=== PATIENT | female | born 1980 | race Two or more races ===

== ENCOUNTER 2016-11-28 12:23 | Emergency (ER) | payer MEDICAID, OTHER ==
[~2016-11-28] VITALS: Ht 160 cm; Wt 72.6 kg
[2016-11-28 12:31] VITALS: BP 126/84
[2016-11-28] MEDS ORDERED: KETOROLAC TROMETH 60MG/2ML VIAL IM ONE (15:00)
== END 2016-11-28 15:53 | disposition home or self-care (01) ==
LOC: ER 12:36
DX: N39.0 Urinary tract infection, site not specified (principal); R51 Headache; V43.54XA Car driver injured in collision with van in traffic accident, initial encounter; Y93.89 Activity, other specified; Y99.8 Other external cause status; Y92.89 Other specified places as the place of occurrence of the external cause
CPT/HCPCS: 81025; 96372; 99283; J1885